=== PATIENT | female | born 1995 | race Hispanic/Latino ===

== ENCOUNTER 2022-01-23 17:20 | Emergency (ER) | payer OTHER ==
[2022-01-23] VITALS (7 sets, daily range): BP systolic 107–124; BP diastolic 66–88
[~2022-01-23] VITALS: Ht 157.5 cm; Wt 82.0 kg
[~2022-01-23 17:20] MED LIST: PRE-NATAL PO; ZOFRAN ODT4 MG PO
[2022-01-23] MEDS ORDERED: PAXLOVID PO (18:34)
[2022-01-23] MEDS ORDERED: NAPROXEN500 MG PO (18:34)
== END 2022-01-23 19:19 | disposition home or self-care (01) | DRG 179 ==
LOC: ED 17:20
DX: U07.1 COVID-19 (principal); R05.9 Cough, unspecified; R50.9 Fever, unspecified; R52 Pain, unspecified